=== PATIENT | female | born 1955 | race Hispanic/Latino ===

== ENCOUNTER → 2017-12-04 17:16 | Emergency (ER) | payer MEDICAID ==
[2017-12-04 17:16] VITALS: BMI 22.4
[~2017-12-04 17:16] MED LIST: Sodium Chloride 0.9% 1,000 ML ONE; Sucralfate 1 gm/10 ml Oral Susp UD ONE
== END | disposition left against medical advice (07) ==
LOC: C.ER 17:16
DX: Z02.89 Encounter for other administrative examinations (principal)

== ENCOUNTER 2017-12-04 19:15 | Emergency (ER) | payer MEDICAID ==
[2017-12-04 19:16] VITALS: BMI 22.4
[2017-12-04] MEDS ORDERED: Sodium Chloride 0.9% 1,000 ML IV ONE (19:59)
--- NOTE | 2017-12-04 19:59 | C.PDOC ---
History Of Present Illness 62 year old female with a Hx of COPD presents to the ER with a complaint of lightheadedness and dizziness for the past few days that is better today. Denies weakness. Patient also complains of epigastric and lower substernal chest pain. Denies nausea or vomiting. Chief Complaint (Nursing): Chest Pain History Per: Patient History/Exam Limitations: no limitations Onset/Duration Of Symptoms: Days Current Symptoms Are (Timing): Still Present Associated Symptoms: denies: Nausea, Dyspnea, Diaphoresis, Syncope Modifying Factors: None Exacerbating Factors: None Alleviating Factors: None Recent travel outside of the [place]: No Past Medical History Reviewed: Historical Data, Nursing Documentation, Vital Signs Vital Signs: Last Vital Signs Temp Pulse 86 12/04/17 23:26 Resp 18 12/04/17 23:26 BP 118/61 12/04/17 23:26 Pulse Ox 100 12/04/17 23:26 - Medical History PMH: Anxiety, Atrial Fibrillation, Bronchitis, COPD, Diabetes, Gall Bladder Disease (gallstones), HTN - [facility] Procedures CYSTOGRAM NEC (10/19/14) RIGID PROCTOSIGMOIDOSCOPY (09/11/00) Family History: States: Unknown Family Hx - Social History Hx Tobacco Use: Yes Hx Alcohol Use: No Hx Substance Use: No - Immunization History Hx Tetanus Toxoid Vaccination: No Hx Influenza Vaccination: No Hx Pneumococcal Vaccination: No Review Of Systems Constitutional: Negative for: Fever, Chills Cardiovascular: Positive for: Chest Pain (Substernal), Light Headedness Gastrointestinal: Positive for: Abdominal Pain. Negative for: Nausea, Vomiting Neurological: Positive for: Dizziness. Negative for: Weakness Physical Exam - Physical Exam Appears: Non-toxic Skin: Normal Color, Warm, Dry Head: Atraumatic, Normacephalic Eye(s): bilateral: Normal Inspection Oral Mucosa: Moist Neck: Normal, No Midline Cervical Tenderness, No Paracervical Tenderness, Supple Chest: Symmetrical, No Tenderness Cardiovascular: Rhythm Regular Respiratory: No Rales, No Rhonchi, No Wheezing, Other (Diminished breath sounds bilaterally) Gastrointestinal/Abdominal: Soft, Tenderness (Epigastric), No Guarding, No Rebound, Other (Chest pain on pressure to epigastric area) Extremity: No Pedal Edema Neurological/Psych: Oriented x3, Normal Speech, Other (No focal deficits) ED Course And Treatment - Laboratory Results Result Diagrams: 12/04/17 20:24 12/04/17 20:24 O2 Sat by Pulse Oximetry: 98 (room air) Pulse Ox Interpretation: Normal Progress Note: CT chest, CT head, EKG, and blood work ordered. Carafate, pepcid , and IV fluids administered. Disposition Counseled Patient/Family Regarding: Diagnosis - Disposition Referrals: [facility] [Outside] Disposition: HOME/ ROUTINE Disposition Time: 23:56 Condition: STABLE Prescriptions: Famotidine [Pepcid] 20 mg PO BID #20 tab Instructions: Gastroesophageal Reflux Disease (ED), Gastritis (GEN) Forms: [facility] (Welsh) - POA Present On Arrival: None - Clinical Impression Clinical Impression: Gastritis, Esophageal reflux disease - Scribe Statement The provider has reviewed the documentation as recorded by the Scribe Jose Andrade All medical record entries made by the Scribe were at my direction and personally dictated by me. I have reviewed the chart and agree that the record accurately reflects my personal performance of the history, physical exam, medical decision making, and the department course for this patient. I have also personally directed, reviewed, and agree with the discharge instructions and disposition.
[2017-12-04] MEDS ORDERED: Sucralfate 1 gm/10 ml Oral Susp UD PO STA (20:00)
[2017-12-04 20:27] LABS: BASO # 0.1 K/uL (0.0-0.2); BASO % 0.7 % (0.0-2.0); EOS % 0.4 % (0.0-4.0); HEMOGLOBIN 14.9 g/dL (11.0-16.0); LYMPH % 17.9 % (20.0-40.0); MEAN CELL VOLUME 95.2 fL (81.0-99.0); MEAN CORPUSCULAR HEMOGLOBIN 33.6 pg (27.0-31.0); MEAN CORPUSCULAR HGB CONC 35.3 g/dL (33.0-37.0); MEAN PLATELET VOLUME 8.4 fL (7.2-11.7); MONO # 0.7 K/uL (0.0-0.8); MONO % 6.5 % (0.0-10.0); NEUT # 8.5 K/uL (1.8-7.0); NEUT % 74.5 % (50.0-75.0); RBC 4.42 Mil/uL (3.80-5.20); RED CELL DISTRIBUTION WIDTH 13.5 % (11.5-14.5)
[2017-12-04 20:29] LABS: WHITE BLOOD COUNT 11.4 K/uL (4.8-10.8)
[2017-12-04 20:44] LABS: ALBUMIN 3.9 g/dL (3.5-5.0); ALT/SGPT 162 U/L (9-52); AST/SGOT 92 U/L (14-36); BLOOD UREA NITROGEN 13 mg/dL (7-17); GFR AFRICAN-AMERICAN > 60; GFR NON-AFRICAN AMERICAN > 60; LIPASE 99 U/L (23-300)
--- NOTE | 2017-12-04 21:20 | CT ---
EXAM: CT Head Without Intravenous Contrast EXAM DATE/TIME: 12/04/2017 7:58 PM CLINICAL HISTORY: 62 years old, female; Condition or disease; Headache; Headache not specified; Additional info: Lightheadedness/ headache TECHNIQUE: Axial computed tomography images of the head/brain without intravenous contrast. All CT scans at this facility use one or more dose reduction techniques, viz.: automated exposure control; ma/kV adjustment per patient size (including targeted exams where dose is matched to indication; i.e. head); or iterative reconstruction technique. COMPARISON: There are no prior studies for comparison. FINDINGS: Brain: Ventricles are normal in size and configuration. There is no midline shift. There are no intra-axial or extra-axial mass lesions or areas of hemorrhage. There are no abnormal fluid collections. Parr-white differentiation is maintained. Ventricles: See above. Bones: Cranial vault is intact. Soft tissues: unremarkable Sinuses: There is minimal mucoperiosteal thickening in the left maxillary and sphenoid sinuses. Ears and mastoids: Middle ears and mastoids are unremarkable Orbits: Orbital contents are unremarkable. IMPRESSION: No acute intracranial abnormality
--- NOTE | 2017-12-04 21:36 | CT ---
EXAM: CT Chest Without Intravenous Contrast EXAM DATE/TIME: 12/04/2017 8:02 PM CLINICAL HISTORY: 62 years old, female; Pain; Chest pain and sternal or substernal pain; Type not specified; Additional info: Chest pain-lower substernal TECHNIQUE: Axial computed tomography images of the chest without intravenous contrast. All CT scans at this facility use one or more dose reduction techniques, viz.: automated exposure control; ma/kV adjustment per patient size (including targeted exams where dose is matched to indication; i.e. head); or iterative reconstruction technique. Coronal and sagittal reformatted images were created and reviewed. COMPARISON: There are no prior studies for comparison. FINDINGS: Lungs and pleural spaces: Trachea and main bronchi are patent. There is no pneumothorax. Lungs are hyperinflated. There is a 4.3 mm right middle lobe nodule, image 36 series 2. There is nodular thickening along the minor fissure. There is a 3.9 mm right middle lobe nodule, image 33 series 2. There is subsegmental atelectasis in the right middle lobe. There is right middle lobe atelectasis and scarring. There is nodular pleural thickening in the middle lobe along the cardiac border. There is a granuloma in the right lower lobe. There is no lobar or segmental consolidation. consolidation. There are 2 8 mm nodular opacity at the left base, image 48 series 2 there is atelectasis/scarring at the left base. There are no pleural effusions. Heart and vasculature: Heart size is normal. There are coronary artery calcifications. There is no pericardial effusion.Aorta and main pulmonary artery are normal in caliber.There are vascular calcifications. Mediastinum: The esophagus is unremarkable. There are no pathologically enlarged mediastinal nodes.Janna are not optimally evaluated without contrast material. Thyroid: Thyroid is only partially imaged. Bones/joints: There are degenerative changes in the osseus structures. There are Schmorl's nodes at multiple levels. There is mild wedging T6, T7 and T8. The Soft tissues: unremarkable Upper abdomen: There are no acute abnormalities in the visualized portion of the abdomen. IMPRESSION: Hyperinflation; multiple small right middle lobe pulmonary nodules and left lower lobe nodules; small granuloma; no focal pneumonia; atherosclerotic disease For low-risk patients recommend follow-up chest CT at 3-6 months. If unchanged consider an additional follow-up CT at 18-24 months. For high-risk patients (smoking history or other known risk factors) initial follow-up chest CT at 3-6 months and if unchanged, 18-24 months.
[2017-12-05 00:18] VITALS: BP 120/64; PULSE 88; RESP 20; TEMP 98.4; O2SAT 99
--- NOTE | 2017-12-05 16:20 | CARD ---
APPROVED REPORT EKG Measurement Heart [id number] CO [id number] <Conclusion> Sinus rhythm with occasional premature ventricular complexes Otherwise normal ECG
== END 2017-12-05 00:18 | disposition home or self-care (01) ==
LOC: C.ER 19:15
DX: K29.70 Gastritis, unspecified, without bleeding (principal); K21.9 Gastro-esophageal reflux disease without esophagitis; I10 Essential (primary) hypertension; E11.9 Type 2 diabetes mellitus without complications; Z87.891 Personal history of nicotine dependence
CPT/HCPCS: 70450; 71250; 80053; 83690; 84484; 85025; 93005; 96374; 99285; J7040

== ENCOUNTER 2018-12-13 13:08 | Outpatient (CLI) | payer MEDICARE, MEDICAID | END 2018-12-13 13:09 | disposition home or self-care (01) | LOC: C.LAB 13:08 | DX: B18.2 Chronic viral hepatitis C (principal); D51.9 Vitamin B12 deficiency anemia, unspecified ==